=== PATIENT | female | born 1995 | race Caucasian/White ===

== ENCOUNTER 2020-10-29 11:16 | Emergency (ER) | payer MEDICAID ==
[2020-10-29] MEDS ORDERED: KETOROLAC 60 MG/2 ML VIAL IM STA (12:11)
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
[2020-10-29 12:51] VITALS: BP 120/68
== END 2020-10-29 12:51 | disposition home or self-care (01) ==
LOC: ED 11:16
DX: S33.5XXA Sprain of ligaments of lumbar spine, initial encounter (principal); X58.XXXA Exposure to other specified factors, initial encounter
CPT/HCPCS: 99283; 99284